=== PATIENT | female | born 1960 | race Caucasian/White ===

== ENCOUNTER 2018-01-21 20:10 | Emergency (ER) | payer MEDICARE ==
[~2018-01-21] VITALS: Ht 167.6 cm; Wt 106.3 kg
[~2018-01-21 20:10] MED LIST: AMLODIPINE BESY10 MG PO; AZO DINE PO; Aspirin E.C. PO; BACTRIM,SEPT1 TABLET PO; CIPRO500 MG PO; COZAAR100 MG PO; KEFLEX500 MG PO; LOW DOSE ASPIRI81 M1 PO; MELOXICAM15 MG PO; METOPROLOL SUCC50 MG PO; MOTRIN800 MG PO; NAPROSYN500 MG PO; NORCO 5/3251 TABLET PO; PAROXETINE HCL10 MG PO; PAROXETINE HCL20 MG PO; PRAVASTATIN SOD40 MG PO; XARELTO15 MG PO; XARELTO20 MG PO
[2018-01-21 23:01] LABS: CHLORIDE 103 mEq/L (99-109); POTASSIUM 3.7 mEq/L (3.7-5.4); SODIUM 141 mEq/L (136-147)
[2018-01-21 23:03] LABS: GLUCOSE 98 mg/dL (70-99)
[2018-01-21 23:07] LABS: CREATININE 0.8 mg/dL (0.6-1.3); GFR ESTIMATE (CALCULATED) > 59 mL/min/
[2018-01-21 23:08] LABS: UREA NITROGEN (BUN) 14 mg/dL (9-23)
[2018-01-21] MEDS ORDERED: ATIVAN0.5 MG PO (23:24)
[2018-01-21 23:49] VITALS: BP 128/93
== END 2018-01-21 23:50 | disposition home or self-care (01) ==
LOC: EME 20:10
PROVIDERS: Physician Assistant
DX: F43.9 Reaction to severe stress, unspecified (principal); I10 Essential (primary) hypertension; F41.9 Anxiety disorder, unspecified; F32.9 Major depressive disorder, single episode, unspecified; Z86.718 Personal history of other venous thrombosis and embolism
CPT/HCPCS: 71046; 80048; 82948; 99281; 99284